=== PATIENT | female | born 1960 | race African-American/Black ===

== ENCOUNTER 2022-08-18 11:16 | Emergency (ER) | payer MEDICAID ==
[~2022-08-18] VITALS: Ht 165.1 cm; Wt 59.0 kg
[~2022-08-18 11:16] MED LIST: AMLO10TA80 PO; ASPI-1406 MT; LIP40 PO
[2022-08-18 11:34] VITALS: BP 114/88
[2022-08-18 13:15] LABS: BASOPHILS % 0.9 % (0.0-2.0); CHLORIDE 108 mEq/L (98-107); EOSINOPHILS % 2.4 % (0.0-5.0); HEMOGLOBIN. 13.2 g/dL (12.0-16.0); LYMPHOCYTES % 51.4 % (20.0-50.0); MEAN CORPUSCULAR HEMOGLOBIN 29.3 pg (28.0-32.0); MEAN CORPUSCULAR VOLUME 88.5 fL (81.0-99.0); MEAN PLATELET VOLUME 7.3 fl (7.4-10.4); MONOCYTES % 10.3 % (2.0-8.0); PLATELET 231 x1000/uL (130-400); RED BLOOD CELL COUNT 4.51 mill/uL (4.2-5.4); RED CELL DISTRIBUTION WIDTH 14.8 % (11.6-14.6)
[2022-08-18] MEDS ORDERED: ACETAMINOPHEN 325MG TABLET PO ONE (15:30)
[2022-08-18] MEDS ORDERED: ACET-2708 MT (16:39)
[2022-08-18] MEDS ORDERED: LIDO1ADH23 TP (16:39)
[2022-08-18] MEDS ORDERED: DICL100G31 TP (16:39)
== END 2022-08-18 17:13 | disposition home or self-care (01) ==
LOC: ER 11:16
DX: R07.89 Other chest pain (principal); M25.512 Pain in left shoulder; M54.89 Other dorsalgia; I10 Essential (primary) hypertension; I69.951 Hemiplegia and hemiparesis following unspecified cerebrovascular disease affecting right dominant side; Z87.820 Personal history of traumatic brain injury; Z98.890 Other specified postprocedural states; R94.31 Abnormal electrocardiogram [ECG] [EKG]
CPT/HCPCS: 36415; 71045; 73030; 80053; 83880; 84484; 85025; 93005; 99285